=== PATIENT | female | born 1955 | race Two or more races ===

== ENCOUNTER → 2019-12-15 | Outpatient (CLI) | payer OTHER ==
[~2019-12-15] MED LIST: AVELOX ABC PAC400 MG; BACTROBAN22 GM; PERCOCET 5/3251 TAB PO; TRAMADOL HCL-AP1 TAB
== END | disposition home or self-care (01) ==
LOC: RAD 14:05
DX: M54.89 Other dorsalgia (principal); M54.2 Cervicalgia; T14.8XXA Other injury of unspecified body region, initial encounter